=== PATIENT | female | born 1975 | race Caucasian/White ===

== ENCOUNTER 2019-09-12 20:57 | Emergency (ER) | payer MEDICAID ==
[~2019-09-12] VITALS: Ht 149.9 cm; Wt 56.4 kg
[2019-09-12 21:59] VITALS: BP 131/87
== END 2019-09-12 21:59 | disposition home or self-care (01) ==
LOC: ED 20:57
DX: N39.0 Urinary tract infection, site not specified (principal)

== ENCOUNTER 2019-09-15 19:22 | Emergency (ER) | payer MEDICAID ==
[2019-09-15 20:35] LABS: BASOPHIL % 0.3 % (0-2); PLATELET COUNT 247 x10^3mcL (130-400); RED CELL DISTRIBUTION WIDTH 13.2 % (11.5-14.5)
[2019-09-15 20:45] LABS: CALCIUM 8.8 mg/dL (8.5-10.1); CARBON DIOXIDE 28.1 mmol/L (21-32); CHLORIDE SERUM 104 mmol/L (98-107); CREATININE SERUM 0.6 mg/dL (0.6-1.0); GFR1 > 60 mL/min; GLUCOSE SERUM 87 mg/dL (74-106); POTASSIUM SERUM 4.3 mmol/L (3.5-5.1); SODIUM SERUM 140 mmol/L (136-145)
[2019-09-15 20:52] LABS: ALBUMIN 3.8 g/dL (3.4-5.0); ALKALINE PHOSPHATASE 76 U/L (46-116); ALT/SGPT 18 U/L (14-59); AST/SGOT 14 U/L (15-37); BILIRUBIN TOTAL 0.21 mg/dL (0.20-1.00); TOTAL PROTEIN, SERUM 7.9 g/dL (6.4-8.2)
[2019-09-15 22:14] VITALS: BP 126/88
== END 2019-09-15 22:14 | disposition home or self-care (01) ==
LOC: ED 19:22
PROVIDERS: Emergency Medicine
DX: N39.0 Urinary tract infection, site not specified (principal); R03.0 Elevated blood-pressure reading, without diagnosis of hypertension
CPT/HCPCS: 36415; J0696; J1885; Q0162

== ENCOUNTER 2020-11-12 14:36 | Emergency (ER) | payer MEDICAID ==
[~2020-11-12] VITALS: Ht 149.9 cm; Wt 57.6 kg
[2020-11-12 15:40] VITALS: Ht 149.9 cm; Wt 57.6 kg
[2020-11-12 18:36] LABS: BASOPHIL % 0.2 % (0.2-1.3); PLATELET COUNT 256 x10^3mcL (179-408); RED CELL DISTRIBUTION WIDTH 12.7 % (12.3-17.7)
[2020-11-12 18:49] LABS: CALCIUM 8.8 mg/dL (8.5-10.1); CARBON DIOXIDE 26.6 mmol/L (21-32); CHLORIDE SERUM 104 mmol/L (98-107); CREATININE SERUM 0.7 mg/dL (0.6-1.0); GFR1 > 60 mL/min; GLUCOSE SERUM 96 mg/dL (74-106); POTASSIUM SERUM 4.3 mmol/L (3.5-5.1); SODIUM SERUM 139 mmol/L (136-145)
[2020-11-12 18:53] LABS: ALBUMIN 3.7 g/dL (3.4-5.0); ALKALINE PHOSPHATASE 64 U/L (46-116); ALT/SGPT 19 U/L (14-59); AST/SGOT 10 U/L (15-37); TOTAL PROTEIN, SERUM 7.8 g/dL (6.4-8.2)
[2020-11-12 19:24] VITALS: BP 140/93
== END 2020-11-12 19:26 | disposition home or self-care (01) ==
LOC: ED 14:36
PROVIDERS: Emergency Medicine
DX: N39.0 Urinary tract infection, site not specified (principal); D72.829 Elevated white blood cell count, unspecified
CPT/HCPCS: J0696; J1885

== ENCOUNTER 2020-11-27 18:14 | Emergency (ER) | payer MEDICAID ==
[~2020-11-27] VITALS: Ht 124.5 cm; Wt 57.6 kg
[2020-11-27 18:34] VITALS: BP 128/70; Ht 124.5 cm; Wt 57.6 kg
== END 2020-11-27 19:58 | disposition home or self-care (01) ==
LOC: ED 18:14
DX: N30.90 Cystitis, unspecified without hematuria (principal); Z98.890 Other specified postprocedural states

== ENCOUNTER 2020-12-21 17:14 | Emergency (ER) | payer MEDICAID ==
[~2020-12-21] VITALS: Ht 154.9 cm; Wt 56.7 kg
[2020-12-21 17:24] VITALS: Ht 154.9 cm; Wt 56.7 kg
[2020-12-21 18:02] VITALS: BP 139/78
== END 2020-12-21 18:02 | disposition home or self-care (01) ==
LOC: ED 17:14
DX: R30.0 Dysuria (principal); M54.5 Low back pain; Z98.890 Other specified postprocedural states